=== PATIENT | female | born 1995 | race Caucasian/White ===

== ENCOUNTER 2022-01-19 20:47 | Emergency (ER) | payer OTHER, SELFPAY ==
[2022-01-19] VITALS (10 sets, daily range): BP systolic 107–152; BP diastolic 58–92; PULSE 80–94; RESP 16–21; TEMP 36.6; O2SAT 98–100; BMI 21.6
--- NOTE | 2022-01-19 21:20 | ED.WEAKNESS ---
HPI - Weakness General Chief complaint: Dizziness Stated complaint: weak d/t postural orthostatic tachycardia synd Time Seen by Provider: 01/19/22 21:14 Source: patient Mode of arrival: Ambulatory History of Present Illness HPI Narrative: Patient here visiting from out of town, visiting family. Patient is from [place], [place]. 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 Had formal cardiac workup. Patient states she can usually manage her nausea and vomiting home that would lead to dizziness and generalized weakness. However in the past month she states hard to keep with hydration and nutrition. She thinks it has been hot weather and some family stress that has contributed to this management. No syncope. No cough cold congestion. Denies . Denies any abdominal pain. Patient in no distress. Walking in hallway without in the difficulty with brisk walk. No ataxia. Patient states she knows that she has a right bundle branch block Related Data Allergies Allergy/AdvReac Type Severity Reaction Status Date / Time amoxicillin Allergy Severe Hives Verified 01/19/22 22:25 Review of Systems Review of Systems Narrative: GENERAL: Denies chills, positive for fatigue, malaise, negative fever, sweats. HEENT: Denies sinus pain, ear pain, sore throat RESPIRATORY: Denies dyspnea, cough CARDIOVASCULAR: Denies chest pain, palpitations GASTROINTESTINAL: Positive nausea, vomiting, negative abdominal pain : Denies dysuria, frequency, hematuria MUSCULOSKELETAL: denies muscle or bony pain SKIN: Denies rash, skin lesions NEUROLOGIC: Denies weakness, numbness ROS Unobtainable: All systems reviewed & are unremarkable except as noted in HPI and below Patient History Social History Smoking Status: Never smoker Smoking Status: Never smoker alcohol intake frequency: holidays/special occasions only Substance Use Type: does not use Exam Narrative Exam Narrative: GENERAL: in no distress, not toxic not dyspneic HEAD: Normocephalic. EYES: Pupils equal round No scleral icterus. ENT: Slightly dry tongue and lips. NECK: Trachea midline. CARDIOVASCULAR: Regular rate and rhythm without murmurs, slightly delayed cap refills on fingers. RESPIRATORY: Clear to auscultation. Breath sounds equal bilaterally. No wheezes, rales, or rhonchi. GASTROINTESTINAL: Abdomen soft, non-tender EXTREMITIES: No gross deformities. BACK: No flank tenderness. NEURO: AOx4. Clear speech no facial droop steady self gait in hallway, brisk self gait. No ataxia. SKIN: Warm and dry, good skin turgor PSYCH: Not anxious, is cooperative Initial Vital Signs Initial Vital Signs: Vital Signs Temperature 97.8 F 01/19/22 20:58 Pulse Rate 85 01/19/22 20:58 Respiratory Rate 16 01/19/22 20:58 Blood Pressure 152/92 H 01/19/22 20:58 Pulse Oximetry 98 01/19/22 20:58 Oxygen Delivery Method 01/19/22 20:58 Course Course Course Narrative: No new issues during course of stay Orders Ordered: ED Orders 01/19/22 21:16 EKG-12 Lead Stat 01/19/22 21:27 CBC Auto Diff [Complete Blood Count AUTO DIFF] Stat CMP [Comprehensive Metabolic Panel] Stat TSH [Thyroid Stimulating Hormone] Stat Discontinued Medications Sodium Chloride (Normal Saline 0.9%) 1,000 mls @ 1,000 mls/hr IV BOLUS ONE Stop: 01/19/22 22:15 Last Infusion: 01/19/22 22:36 Dose: 0 mls/hr Documented By: Admin: 01/19/22 21:37 Dose: 1,000 mls/hr Documented By: ANAHI Ketorolac Tromethamine (Ketorolac 30 Mg/Ml Vial) 15 mg IV NOW ONE Stop: 01/19/22 22:46 Last Admin: 01/19/22 23:08 Dose: 15 mg Documented By: ANAHI Ondansetron HCl (Ondansetron 4 Mg Odt Prepack) 1 bottle MISC SEEINSTR ONE Stop: 01/19/22 23:26 Last Admin: 01/19/22 23:28 Dose: 1 bottle Documented By: ANAHI Reevaluation(s) Reevaluation #1: Patient states feels much better after IV fluids. Reviewed results with her. She does agree with taking home Zofran with her tonight. Return precautions reviewed with her. Not toxic at discharge. Vital Signs Vital signs: Vital Signs - 8 hr 01/19/22 20:58 01/19/22 23:16 01/19/22 21:29 Temperature 97.8 F Pulse Rate 85 82 Pulse Rate [Orthostatic Lying] 90 Pulse Rate [Orthostatic Sitting] 92 H Pulse Rate [Orthostatic Standing] 93 H Respiratory Rate 16 Blood Pressure 152/92 H Blood Pressure [Orthostatic Lying] 107/58 L Blood Pressure [Orthostatic Sitting] 123/61 Blood Pressure [Orthostatic Standing] 133/76 Pulse Oximetry 98 100 Oxygen Delivery Method Room Air 01/19/22 21:30 01/19/22 21:32 01/19/22 21:32 Temperature Pulse Rate 80 88 Pulse Rate [Orthostatic Lying] Pulse Rate [Orthostatic Sitting] Pulse Rate [Orthostatic Standing] Respiratory Rate Blood Pressure 126/88 Blood Pressure [Orthostatic Lying] Blood Pressure [Orthostatic Sitting] Blood Pressure [Orthostatic Standing] Pulse Oximetry 100 100 Oxygen Delivery Method 01/19/22 22:00 01/19/22 22:00 01/19/22 22:30 Temperature Pulse Rate 86 Pulse Rate [Orthostatic Lying] Pulse Rate [Orthostatic Sitting] Pulse Rate [Orthostatic Standing] Respiratory Rate 16 Blood Pressure 118/79 123/70 Blood Pressure [Orthostatic Lying] Blood Pressure [Orthostatic Sitting] Blood Pressure [Orthostatic Standing] Pulse Oximetry 98 Oxygen Delivery Method 01/19/22 22:30 01/19/22 23:00 01/19/22 23:00 Temperature Pulse Rate 80 90 Pulse Rate [Orthostatic Lying] Pulse Rate [Orthostatic Sitting] Pulse Rate [Orthostatic Standing] Respiratory Rate 21 Blood Pressure 107/58 L Blood Pressure [Orthostatic Lying] Blood Pressure [Orthostatic Sitting] Blood Pressure [Orthostatic Standing] Pulse Oximetry 99 99 Oxygen Delivery Method 01/19/22 23:13 01/19/22 23:13 01/19/22 23:14 Temperature Pulse Rate 82 94 H Pulse Rate [Orthostatic Lying] Pulse Rate [Orthostatic Sitting] Pulse Rate [Orthostatic Standing] Respiratory Rate 17 Blood Pressure 123/61 Blood Pressure [Orthostatic Lying] Blood Pressure [Orthostatic Sitting] Blood Pressure [Orthostatic Standing] Pulse Oximetry 99 99 Oxygen Delivery Method 01/19/22 23:14 Temperature Pulse Rate Pulse Rate [Orthostatic Lying] Pulse Rate [Orthostatic Sitting] Pulse Rate [Orthostatic Standing] Respiratory Rate Blood Pressure 133/76 Blood Pressure [Orthostatic Lying] Blood Pressure [Orthostatic Sitting] Blood Pressure [Orthostatic Standing] Pulse Oximetry Oxygen Delivery Method MDM - Weakness Differential Diagnosis Differential diagnosis: Likely anemia, hypoglycemia, hypothyroidism, dehydration and other (Arrhythmia/POTS syndrome) Lab Data Result diagrams: 01/19/22 21:27 01/19/22 21:27 Labs: Lab Results 01/19/22 01/19/22 01/19/22 Range/Units 21:27 21:27 21:27 WBC 10.8 (4.5-11.0) X10^3/uL RBC 4.93 (4.0-5.2) X10^6/uL Hgb 15.2 (12.0-16.0) g/dL Hct 44.8 (36-46) % MCV 90.8 (80-100) fL MCH 30.8 (26-34) PG MCHC 33.9 (30-36) % RDW 12.8 (11.6-14.8) % Plt Count 241 (150-400) X10^3/uL Neut % (Auto) 70.3 (50-75) % Lymph % (Auto) 22.7 L (25-40) % [place] % (Auto) 6.2 (3-14) % Eos % (Auto) 0.5 L (2-4) % Baso % (Auto) 0.3 (0-2) % Neut # (Auto) 7600 H (2449-8342) /uL Lymph # (Auto) 2500 (9107-4388) /uL [place] # (Auto) 700 (0-900) /uL Eos # (Auto) 100 (0-450) /uL Baso # (Auto) 0 (0-100) /uL Sodium 137 (137-145) mmol/L Potassium 3.9 (3.4-5.1) mmol/L Chloride 103 (98-107) mmol/L Carbon Dioxide 24 (22-32) mmol/L BUN 13 (7-17) mg/dL Creatinine 0.58 (0.52-1.04) mg/dL Estimated GFR > 60 (>60) mL/min BUN/Creatinine Ratio 22.4 H (6-22) Glucose 105 H (70-100) mg/dL Calcium 9.5 (8.4-10.2) mg/dL Total Bilirubin 0.8 (0.2-1.3) mg/dL AST 22 (14-36) IU/L ALT 14 (<35) IU/L Alkaline Phosphatase 60 (38-126) U/L Total Protein 8.4 H (6.3-8.2) g/dL Albumin 4.9 (3.5-5.0) g/dL Globulin 3.5 (1.7-4.1) g/dL Albumin/Globulin Ratio 1.4 (1.0-2.8) TSH 2.25 (0.47-4.68) uIU/mL Point of Care Testing Test Results Negative Urine Dip Bedside Urine Glucose Negative Bedside Urine Bilirubin - Negative Bedside Urine Ketone - Negative Urine Specific [place] 1.010 Bedside Urine Occult Blood - Negative Bedside Urine pH 6.5 Bedside Urine Protein - Negative Bedside Urine Urobilinogen 0.2 Bedside Urine Nitrite - Negative Bedside Urine Leukocytes - Negative Esterase ECG Data Interpretation: Normal sinus rhythm rate 87 incomplete right bundle-branch block MDM Narrative Medical decision making narrative: Appropriate for discharge home. Exam and laboratory studies are reassuring. Return precautions reviewed with patient. No imaging indicated this time. EKGs consists with what patient states is her baseline. Patient desires discharge home Discharge Plan Departure Patient Disposition: Home Clinical Impression: Nausea & vomiting Instructions: Nausea and Vomiting-Adult Activity Restrictions/Additional Instructions: Keep well hydrated. Return if worse if any questions or concerns. See your family doctor when you return home. Zofran ODT tablets have been given to you to take to help for any nausea. Visit Report Forms: Patient Portal/API
[2022-01-19] MEDS: SODIUM CHLORIDE 0.9% 1,000 ML 1000 ML IV (21:37)
[2022-01-19 21:46] LABS: Add Manual Diff / Slide Review NO; Basophils Absolute Auto 0 /uL (0-100); Basophils Percent Auto 0.3 % (0-2); Eosinophils Absolute Auto 100 /uL (0-450); Eosinophils Percent Auto 0.5 % (2-4); Hematocrit 44.8 % (36-46); Hemoglobin 15.2 g/dL (12.0-16.0); Lymphocytes Absolute Auto 2500 /uL (1100-4500); Lymphocytes Percent Auto 22.7 % (25-40); Mean Corpuscular HGB Conc 33.9 % (30-36); Mean Corpuscular Hemoglobin 30.8 PG (26-34); Mean Corpuscular Volume 90.8 fL (80-100); Monocytes Absolute Auto 700 /uL (0-900); Monocytes Percent Auto 6.2 % (3-14); Neutrophils Absolute Auto 7600 /uL (1500-7000); Neutrophils Percent Auto 70.3 % (50-75); Platelet Count 241 X10^3/uL (150-400); Red Blood Cell Count 4.93 X10^6/uL (4.0-5.2); Red Cell Distribution Width 12.8 % (11.6-14.8); White Blood Cell Count 10.8 X10^3/uL (4.5-11.0)
[2022-01-19 21:51] LABS: Alanine Aminotransferase 14 IU/L (<35); Albumin 4.9 g/dL (3.5-5.0); Albumin Globulin Ratio 1.4 (1.0-2.8); Alkaline Phosphatase 60 U/L (38-126); Aspartate Aminotransferase 22 IU/L (14-36); BUN Creatinine Ratio 22.4 (6-22); Bilirubin Total 0.8 mg/dL (0.2-1.3); Blood Urea Nitrogen 13 mg/dL (7-17); Calcium 9.5 mg/dL (8.4-10.2); Carbon Dioxide 24 mmol/L (22-32); Chloride 103 mmol/L (98-107); Estimated Glomerular Filt Rate > 60 mL/min (>60); Globulin 3.5 g/dL (1.7-4.1); Glucose 105 mg/dL (70-100); HEMOLYSIS < 15 (0-50); Potassium 3.9 mmol/L (3.4-5.1); Sodium 137 mmol/L (137-145); Total Protein 8.4 g/dL (6.3-8.2)
[2022-01-19 22:49] LABS: Thyroid Stimulating Hormone 2.25 uIU/mL (0.47-4.68)
[2022-01-19] MEDS: KETOROLAC 30 MG/ML VIAL 15 MG IV (23:08)
[2022-01-19] MEDS: ONDANSETRON 4 MG ODT PREPACK 1 BOTTLE MISC (23:28)
== END 2022-01-19 23:36 | disposition home or self-care (01) ==
PROVIDERS: Emergency Provider Emergency Medicine
DX: R11.2 Nausea with vomiting, unspecified (principal)
CPT/HCPCS: 36415; 80053; 81003; 81025; 84443; 85025; 93005; 96361; 96374; 99284; J1885